=== PATIENT | male | born 1975 ===

== ENCOUNTER 2016-11-01 01:00 | Emergency (ER) | payer SELFPAY ==
[2016-11-01 01:13] VITALS: RESP 18
--- NOTE | 2016-11-01 02:00 | C.PDOC ---
History Of Present Illness 41 yo male com ein for evaluation of left big toe laceration sustained few hours [employer]. Pt sts, " cut toe on basement door at bar". Pt wearing flip-flops. Pt sts, noted bleeding from wound. Otherwise, denies fever, chills, deformity, sensory or vascular deficits to Left foot. Ambulate to Ed with stable gait. Time Seen by Provider: 11/01/16 01:11 Chief Complaint (Nursing): Abnormal Skin Integrity History Per: Patient Onset/Duration Of Symptoms: Sudden Onset Past Medical History Reviewed: Historical Data, Nursing Documentation, Vital Signs Vital Signs: Last Vital Signs Temp 98.3 F 11/01/16 02:19 Pulse 75 11/01/16 02:19 Resp 18 11/01/16 02:19 BP 132/72 11/01/16 02:19 Pulse Ox 99 11/01/16 02:19 - Medical History PMH: No Chronic Diseases Surgical History: No Surg Hx Family History: States: No Known Family Hx - Social History Hx Alcohol Use: Yes Hx Substance Use: No - Immunization History Hx Tetanus Toxoid Vaccination: No Hx Influenza Vaccination: No Hx Pneumococcal Vaccination: No Review Of Systems Except As Marked, All Systems Reviewed And Found Negative. Constitutional: Negative for: Fever, Chills Musculoskeletal: Positive for: Foot Pain Skin: Positive for: Lesions Neurological: Negative for: Weakness, Numbness Physical Exam - Physical Exam Appears: Well, Non-toxic, No Acute Distress Skin: Normal Color, Warm, Other (Left 1st toe Ushape laceration at base of toe on plantar surface, 1cm length, appears shape of small skin flap. No wound bleeding. FAROM of left 1st toe, no neurovascular deficits.) Extremity: Normal ROM (Left foot), Capillary Refill (less than 2sec to Left foot ), No Deformity Neurological/Psych: Oriented x3, Normal Speech, Normal Motor, Normal Sensation, Normal Reflexes ED Course And Treatment O2 Sat by Pulse Oximetry: 98 Pulse Ox Interpretation: Normal Progress Note: On re-evaluation, pt is afebrile, hemodynamicaly stable. Non- toxic. Left foot: laceration over Left 1st toe repaired w/skin adhesive/ster- strips. FAROM of Left foot, no neurovascular deficits. tetanus given. Pt advised on wound care. ref. to f/u with PMD in 2 days for wound check. return if any new changes. Laceration - Laceration Repair Left toe Wound Length (In cm): 1 Description Of Wound: Clean (U-shape) Wound Closure: Steri Strips, Skin Glue Wound Complexity: Simple Disposition Counseled Patient/Family Regarding: Diagnosis, Need For Followup - Disposition Referrals: Non [facility] Provider, [Primary Care Provider] - Disposition: HOME/ ROUTINE Disposition Time: 01:50 Condition: STABLE Additional Instructions: KEEP FOOT ELEVATED FOR 2-3 DAYS KEEP WOUND DRY, AVOID WATER EXPOSURE FOLLOW UP WITH PMD IN 2-3 DAYS FOR RE-EVALUATION. RETURN TO ED IF ANY WORSENING OR NEW CHANGES. Instructions: Laceration (ED), Skin Adhesive Care (ED) Forms: [facility] (Czech), Work Excuse - Clinical Impression Clinical Impression: Laceration
[2016-11-01 02:21] VITALS: BP 132/72; PULSE 75; TEMP 98.3
[2016-11-01 03:17] VITALS: O2SAT 98
== END 2016-11-01 02:20 | disposition home or self-care (01) ==
LOC: SUPCPDRO 01:00 → C.ER 01:00
DX: S91.112A Laceration without foreign body of left great toe without damage to nail, initial encounter (principal); W45.8XXA Other foreign body or object entering through skin, initial encounter; Y93.89 Activity, other specified; Y92.89 Other specified places as the place of occurrence of the external cause; Z23 Encounter for immunization